=== PATIENT | female | born 1935 | race Caucasian/White ===

== ENCOUNTER 2016-04-26 16:27 | Emergency (ER) | payer MEDICARE, OTHER | END 2016-04-26 21:02 | disposition home or self-care (01) | LOC: FER 16:27 | DX: M25.512 Pain in left shoulder (principal); M25.562 Pain in left knee; M54.2 Cervicalgia; M54.6 Pain in thoracic spine; M79.645 Pain in left finger(s); R51 Headache; I10 Essential (primary) hypertension; E03.9 Hypothyroidism, unspecified; E78.5 Hyperlipidemia, unspecified; F32.9 Major depressive disorder, single episode, unspecified; F41.9 Anxiety disorder, unspecified; Z79.82 Long term (current) use of aspirin; Z79.899 Other long term (current) drug therapy; Z98.890 Other specified postprocedural states; W10.0XXA Fall (on)(from) escalator, initial encounter | CPT/HCPCS: 70450; 72050; 72072; 73030; 73140; 73564 ==

== ENCOUNTER 2016-08-06 10:00 | Emergency (ER) | payer MEDICARE, OTHER | END 2016-08-06 12:49 | disposition home or self-care (01) | LOC: FER 10:00 | DX: J06.9 Acute upper respiratory infection, unspecified (principal); R91.8 Other nonspecific abnormal finding of lung field; M41.84 Other forms of scoliosis, thoracic region; I10 Essential (primary) hypertension; E78.5 Hyperlipidemia, unspecified; E03.9 Hypothyroidism, unspecified | CPT/HCPCS: 71020; 87070; 87205; 94640 ==